=== PATIENT | male | born 1955 | race Caucasian/White ===

== ENCOUNTER 2019-07-14 10:11 | Emergency (ER) | payer OTHER ==
[~2019-07-14] VITALS: Ht 175.3 cm; Wt 71.2 kg
--- NOTE | 2019-07-14 10:30 | NUR ---
PT BIB [facility] C/O WEAKNESS AND COUGH X WEEKS WITH CONFUSION TODAY, PT IS AAOX2, NOT IN RESPIRATORY DISTRESS, HOOKED TO SENIOR PROGRAM MANAGER, KEPT RESTED AND COMFORTABLE, WILL CONTINUE TO MONITOR.
--- NOTE | 2019-07-14 10:40 | NUR ---
IV LINE ESTABLISHED BLOOD DRAWN AND SENT TO LAB.
--- NOTE | 2019-07-14 10:53 | NUR ---
SEEN AND EXAMINED BY .
--- NOTE | 2019-07-14 11:08 | NUR ---
URINAL GIVEN BUT UNABLE TO PROVIDE URINE SPECIMEN THIS TIME.
[2019-07-14 11:10] LABS: BASOPHILS # (AUTO) 0.1 /CMM (0.0-0.2); BASOPHILS % (AUTO) 1.4 % (0.0-2.0); EOSINOPHILS % (AUTO) 2.7 % (0.0-6.0); HEMATOCRIT 42 % (39-51); HEMOGLOBIN 14.4 g/dL (13.5-17.5); LYMPHOCYTES # (AUTO) 2.1 /CMM (0.8-4.8); LYMPHOCYTES % (AUTO) 32.2 % (20.0-44.0); MEAN CORPUSCULAR HGB CONC 34 g/dl (31.0-36.0); MEAN CORPUSCULAR VOLUME 92 fL (80-96); MONOCYTES # (AUTO) 0.3 /CMM (0.1-1.30); MONOCYTES % (AUTO) 5.2 % (2.0-12.0); NEUTROPHILS # (AUTO) 3.7 /CMM (1.8-8.9); NEUTROPHILS % (AUTO) 58.5 % (43.0-81.0); PLATELET COUNT (AUTO) 252 /CMM (150-450); RED BLOOD CELL COUNT(AUTO) 4.61 MIL/uL (4.5-6.0); WHITE BLOOD COUNT (AUTO) 6.4 K/uL (4.3-11.0)
[2019-07-14 11:18] LABS: CARBON DIOXIDE 29 mmol/L (21-32); CHLORIDE 107 mmol/L (98-107); CREATININE 0.9 mg/dL (0.6-1.3); GLUCOSE 99 mg/dL (74-106); SODIUM SERUM 143 mmol/L (136-145); UREA NITROGEN, BLOOD 14 mg/dL (7-18)
[2019-07-14 11:23] LABS: ALANINE AMINOTRANSFERASE 29 U/L (12-78); ALBUMIN 3.9 g/dL (3.4-5.0); ALCOHOL, BLOOD < 3 mg/dL (0-0); ALKALINE PHOSPHATASE 91 U/L (46-116); ASPARTATE AMINOTRANSFERASE 18 U/L (15-37); BILIRUBIN,DIRECT 0.1 mg/dL (0.0-0.2); BILIRUBIN,TOTAL 0.4 mg/dL (0.2-1.0); TOTAL PROTEIN, SERUM 6.8 g/dL (6.4-8.2)
--- NOTE | 2019-07-14 11:35 | NUR ---
PT WHEELED TO CT SCAN VIA [employer].
--- NOTE | 2019-07-14 12:49 | NUR ---
[facility] [phone]
[2019-07-14] MEDS ORDERED: IV NS 0.9% 1,000 ML IV ONE (13:00)
--- NOTE | 2019-07-14 13:04 | NUR ---
URINE SPECIMEN COLLECTED AND SENT TO LAB.
[2019-07-14 13:09] LABS: APPEARANCE,URINE Clear (CLEAR); BILIRUBIN,URINE Negative (NEGATIVE); BLOOD, URINE Negative Ery/uL (NEGATIVE); COLOR,URINE Yellow (YELLOW); KETONES,URINE Negative (NEGATIVE); LEUKOCYTE ESTERASE ,URINE Negative (NEGATIVE); NITRITE, URINE Negative (NEGATIVE); PROTEIN,URINE Negative (NEGATIVE); UGLUCOSE Negative (NEGATIVE); UROBILINOGEN,URINE 0.2 EU/dL (0.2)
--- NOTE | 2019-07-14 13:51 | NUR ---
CALLED [facility] FOR CONSULT.
--- NOTE | 2019-07-14 14:09 | NUR ---
AHSAN PALACIOS, CAREGIVER FOR PATIENT. LEFT CONTACT # [phone]
--- NOTE | 2019-07-14 14:27 | NUR ---
MARINA received a call from JP Kulkarni in ED stating pt is medically cleared to be discharged but he doesn't have his dewey. MARINA contacted Emma [phone] who answered the phone. She is a cousin to the pt. She was requesting for medical information regarding the pt's visit to the ED. MARINA transferred her call to ED and requested her to speak with PJ Kulkarni.
--- NOTE | 2019-07-14 14:52 | NUR ---
CALLED PT'S CAREGIVER NO ANSWER.
--- NOTE | 2019-07-14 15:40 | NUR ---
CALLED PT'S COUSIN SHABNAM. PER COUSIN SHABNAM THEY WILL BE WAITING ON HIM IN HIS APARTMENT.
[2019-07-14 15:45] VITALS: BP 120/62
--- NOTE | 2019-07-14 16:03 | NUR ---
IV removed. Catheter intact and site benign. Pressure and 4x4 applied to site. No bleeding noted. Patient discharged to home in stable condition. Written and verbal after care instructions given. Patient verbalizes understanding of instruction.
[2019-07-15] MEDS ORDERED: MORPHINE SULFATE INJ 4 MG/ML DISP.SYRIN ONE (21:29)
[2019-07-15] MEDS ORDERED: KETOROLAC TROMETHAMINE INJ 30 MG/ML VIAL ONE (21:29)
== END 2019-07-14 16:04 | disposition home or self-care (01) ==
LOC: ER 10:19
DX: R05 Cough (principal); R41.0 Disorientation, unspecified; G43.909 Migraine, unspecified, not intractable, without status migrainosus
CPT/HCPCS: 36415; 70450; 71045; 80048; 80076; 80305; 80307; 81001; 84484; 85025; 87086; 96360; 99285; J7030; 81000-TC; J1885; J2270